=== PATIENT | female | born 1955 | race Caucasian/White ===

== ENCOUNTER 2019-03-18 11:46 | Emergency (ER) | payer BC ==
[2019-03-18 11:53] VITALS: BP 146/89
--- NOTE | 2019-03-18 13:01 | ED Physician Documentation ---
PD HPI URI - Stated complaint Stated Complaint: THROAT PX/HEADACHE - Chief complaint Chief Complaint: Heent - History obtained from History obtained from: Patient - History of Present Illness Timing - onset: How many weeks ago (1) Timing duration: Weeks (1) Timing details: Gradual onset, Still present (worsening the past 1-2 days), Waxing and waning Associated symptoms: Fever, Chills, Sore throat, Swollen nodes. No: Dry cough, Productive cough, NVD Contributing factors: No: Sick contact, Travel Similar symptoms before: Has not had sx before Review of Systems Constitutional: reports: Fever, Myalgias Nose: denies: Rhinorrhea / runny nose, Congestion Throat: reports: Sore throat Respiratory: denies: Cough GI: denies: Nausea, Vomiting, Diarrhea PD PAST MEDICAL HISTORY - Past Medical History Past Medical History: No - Past Surgical History Past Surgical History: Yes Ortho: Other - Present Medications Home Medications: Ambulatory Orders Medication Instructions Recorded Confirmed Cephalexin [Keflex] 500 mg PO Q6H #28 capsule 03/18/19 dexAMETHasone [Decadron] 4 mg PO DAILY #5 tablet 03/18/19 - Allergies Allergies/Adverse Reactions: Allergies Allergy/AdvReac Type Severity Reaction Status Date / Time Penicillins Allergy Rash Verified 03/18/19 11:53 - Social History Does the pt smoke?: No Smoking Status: Never smoker Does the pt drink ETOH?: Yes Does the pt have substance abuse?: No - Immunizations Immunizations are current?: Yes - POLST Patient has POLST: No PD ED PE NORMAL - Vitals Vital signs reviewed: Yes - General General: Alert and oriented X 3, Well developed/nourished, Other (appears uncomfortable with swallowing but able to do it. ) - HEENT HEENT: No: Pharynx benign (left tonsil with some redness; right with redness but also some lateral peritonsillar edema and redness. No protrusion nor deviation of midline. ) - Neck Neck: Supple, no meningeal sign, Other (anterior nodes felt, right side tender. ) - Cardiac Cardiac: RRR, No murmur - Respiratory Respiratory: Clear bilaterally Results - Vitals Vitals: Oxygen O2 Source Room air - Labs Labs: Microbiology 03/18/19 11:54 Group A Strep Throat Culture - Final Throat Beta Hemolytic Strep Group A Laboratory Tests 03/18/19 11:54 Group A Strep Rapid Negative PD MEDICAL DECISION MAKING - ED course Complexity details: considered differential (clinically with some edema right peritonsillar area. Does not protrude, and does not seem like drainable abscess. ), d/w patient Departure - Departure Disposition: 01 Home, Self Care Clinical Impression: Peritonsillitis Condition: Stable Record reviewed to determine appropriate education?: Yes Instructions: ED Peritonsillar Infec Abx No I andD Prescriptions: Cephalexin [Keflex] 500 mg PO Q6H #28 capsule dexAMETHasone [Decadron] 4 mg PO DAILY #5 tablet Comments: This looks like a peritonsillar and tonsillar infection which is more commonly going to be bacterial and common enough not the classic group A strep, so missed by the rapid test. The culture will result in 2 to 3 days to better distinguish if the bacterial infection. Meanwhile we will treated as likely bacterial with cephalexin for a week and Decadron for inflammation daily for 5 more days. Continue the Advil for pain and inflammation. Add Tylenol if needed. Drink lots of water and fluids. Recheck if not improved over the next several days. Discharge Date/Time: 03/18/19 13:23
[2019-03-18] MEDS ORDERED: DEXAMETHASONE 10 MG/ML VIAL PO STA (13:11)
[2019-03-18] MEDS ORDERED: cephALEXin 250 MG CAPSULE PO STA (13:11)
[2019-03-18] MEDS ORDERED: CHERRY SYRUP 10 ML UDC PO ONE (13:11)
== END 2019-03-18 13:23 | disposition home or self-care (01) ==
LOC: ED 11:46
DX: J36 Peritonsillar abscess (principal)
CPT/HCPCS: 87070; 87430; 99283; A9270

== ENCOUNTER 2020-09-11 15:42 | Outpatient (CLI) | payer MEDICARE | END 2020-09-11 15:43 | disposition home or self-care (01) | LOC: COV 15:42 | PROVIDERS: ATTEND Family Medicine | DX: R53.83 Other fatigue (principal); R07.0 Pain in throat; Z20.828 Contact with and (suspected) exposure to other viral communicable diseases ==

== ENCOUNTER 2020-11-19 07:17 | Outpatient (CLI) | payer MEDICARE ==
[2020-11-19 16:21] LABS: BASOPHILS # (AUTO) 0.1 10^3/uL (0.0-0.1); BASOPHILS % (AUTO) 1.3 %; EOSINOPHILS # (AUTO) 0.2 10^3/uL (0.0-0.7); EOSINOPHILS % (AUTO) 2.2 %; HGB - HEMOGLOBIN 13.9 g/dL (12.0-16.0); LYMPHOCYTES # (AUTO) 2.1 10^3/uL (1.5-3.5); LYMPHOCYTES % (AUTO) 31.1 %; MEAN CORPUSCULAR HEMOGLOBIN 29.8 pg (27.0-31.0); MEAN CORPUSCULAR HGB CONC 31.6 g/dL (32.0-36.0); MEAN CORPUSCULAR VOLUME 94.4 fL (81.0-99.0); MEAN PLATELET VOLUME 12.2 fL (7.9-10.8); MONOCYTES # (AUTO) 0.5 10^3/uL (0.0-1.0); MONOCYTES % (AUTO) 6.7 %; NEUTROPHILS % (AUTO) 58.6 %; PLT - PLATELET COUNT 288 10^3/uL (130-450); RED BLOOD COUNT 4.66 10^6/uL (4.20-5.40); RED CELL DISTRIBUTION WIDTH 13.5 % (12.0-15.0); WHITE BLOOD COUNT 6.9 x10^3/uL (4.8-10.8)
[2020-11-19 17:12] LABS: ALBUMIN 4.3 g/dL (3.2-5.5); ALBUMIN/GLOBULIN RATIO 1.5 (1.0-2.2); ALKALINE PHOSPHATASE 53 IU/L (42-121); ALT ALANINE AMINOTRANSFERASE 15 IU/L (10-60); AST ASPARTATE AMINOTRANSFERASE 21 IU/L (10-42); BUN - BLOOD UREA NITROGEN 16 mg/dL (6-20); CALCIUM 9.3 mg/dL (8.5-10.3); CARBON DIOXIDE - CO2 23 mmol/L (21-32); CHLORIDE 105 mmol/L (101-111); CHOL/HDL RATIO 2.9 (<4.4); CHOLESTEROL 219 mg/dL; CREATININE 0.7 mg/dL (0.4-1.0); GLUCOSE 96 mg/dL (70-100); HDL CHOLESTEROL 75 mg/dL; LDL CHOLESTEROL,CALCULATED 132 mg/dL; LDL/HDL RATIO 1.8 (<4.4); TOTAL PROTEIN 7.2 g/dL (6.7-8.2); VLDL CHOLESTEROL 12 mg/dL
== END 2020-11-19 07:18 | disposition home or self-care (01) ==
LOC: LAB.S 07:17
PROVIDERS: ATTEND Registered Nurse
DX: R03.0 Elevated blood-pressure reading, without diagnosis of hypertension (principal); R53.83 Other fatigue; R10.32 Left lower quadrant pain
CPT/HCPCS: 36415; 80053; 80061; 83721; 84443; 85025

== ENCOUNTER 2022-02-09 13:59 | Outpatient (CLI) | payer MEDICARE ==
--- NOTE | 2022-02-12 16:24 | Mammography Report ---
BILATERAL DIGITAL SCREENING MAMMOGRAM 3D/2D: 02/09/2022 CLINICAL: Routine screening. Comparison is made to exam dated: 01/19/2016 mammogram - [facility]. The tissue of both breasts is predominantly fatty. No significant masses, calcifications, or other findings are seen in either breast. There has been no significant interval change. IMPRESSION: NEGATIVE There is no mammographic evidence of malignancy. A 1 year screening mammogram is recommended. This exam was interpreted at Station ID: [id number]. NOTE: For mammograms, a report in lay terms will be sent to the patient. Approximately 15% of breast malignancies will not be visualized mammographically. In the management of a palpable breast mass, a negative mammogram must not discourage biopsy of a clinically suspicious lesion. Electronically Signed By: Waldemar Bowling M.D., jr/magda:02/10/2022 08:53:50 ACR BI-RADS Category 1: Negative 3341F PARENCHYMAL PATTERN: (F) - The breast(s) demonstrate(s) diffuse fatty replacement. BI-RADS CATEGORY: (1) - 1 RECOMMENDATION: (ANNUAL) - Recommend routine annual screening mammography. [id number] 1 year screening LATERALITY: (B)
== END 2022-02-09 14:00 | disposition home or self-care (01) ==
LOC: DI.S 13:59
DX: Z12.31 Encounter for screening mammogram for malignant neoplasm of breast (principal)